=== PATIENT | female | born 1995 | race Caucasian/White ===

== ENCOUNTER → 2016-12-03 | Outpatient (CLI) | payer MEDICAID ==
[~2016-12-03] MED LIST: DOCU100C37 PO; HYDR-3812 PO; IBUP-1773 PO; PREN1TAB86 PO
== END ==
LOC: LAB 15:29
PROVIDERS: ATTEND Family Medicine
DX: R53.83 Other fatigue (principal); R63.5 Abnormal weight gain
CPT/HCPCS: 36415; 84443

== ENCOUNTER → 2017-04-28 | Outpatient (CLI) | payer MEDICAID ==
[~2017-04-28] MED LIST changes: +PHEN-483 PO; +PHEN-640 PO
== END ==
LOC: PREOP 14:08
PROVIDERS: ATTEND Urology
DX: Z01.818 Encounter for other preprocedural examination (principal); R32 Unspecified urinary incontinence; N35.9 Urethral stricture, unspecified

== ENCOUNTER 2017-04-29 07:32 | Day surgery (SDC) | payer MEDICAID ==
[~2017-04-29] VITALS: Ht 165.1 cm; Wt 122.9 kg
[~2017-04-29 07:32] MED LIST changes: -PHEN-483 PO; -PHEN-640 PO
--- OUTSIDE RECORDS SUMMARY | 2017-04-29 07:35 | XMS REPORT ---
Author Author SURYA PAINTER Organization [facility] Address [address] [place] [address] Care Team Providers Care Inbound Sales Manager Name Role Phone PAINTER, SURYA Unavailable PROBLEMS Type Condition ICD9-CM Code HIX69-LB Code Onset Dates Condition Status SNOMED Code Assessment Lichen planus L43.9 Jan, Active 8665564 ALLERGIES Substance Reaction Event Type Date Status N.K.D.A. Unknown Non Drug Allergy Jan, Unknown SOCIAL HISTORY No smoking Hx information available PLAN OF CARE VITAL SIGNS Height 64 in 2016-02-12 Weight 233.6 lbs 2016-02-12 Heart Rate 90 bpm 2016-02-12 Respiratory Rate 18 2016-02-12 BMI 40.09 kg/m2 2016-02-12 Blood pressure systolic 110 mmHg 2016-02-12 Blood pressure diastolic 80 mmHg 2016-02-12 MEDICATIONS Medication Instructions Dosage Frequency Start Date End Date Duration Status Vitamin 27-0.8 MG Active Hydrocortisone 2.5 % Externally Twice a day 1 application to affected area 12h 19 Jan, 2016 Apr, 30 day(s) Active RESULTS No Results PROCEDURES Procedure Date Ordered Related Diagnosis Body Site Office Visit, Est Pt., Level 3 Feb 12, 2016 IMMUNIZATIONS No Known Immunizations
--- OUTSIDE RECORDS SUMMARY | 2017-04-29 07:35 | XMS REPORT ---
Author CALLUM Duran [facility] eClinicalWorks Address Unknown Phone Unavailable Care Team Providers Care Graphic Technician Name Role Phone CALLUM FRANCOIS Unavailable Allergies No Known Allergies Problems Problem Type Condition Code Onset Dates Condition Status Assessment Expectant parent prebirth visual basic developer visit Z76.81 Active Medications No Known Medications Procedures Procedure Coding System Code Date Office Visit, Est Pt., Level 2 CPT-4 60352 Jan 10, 2016 Results No Known Results Summary Purpose eClinicalWorks Submission
--- OUTSIDE RECORDS SUMMARY | 2017-04-29 07:35 | XMS REPORT ---
Author Author MARTIN CHRIS [facility] eClinicalWorks Address Unknown Phone Unavailable Care Team Providers Care Pottery Decoration Designer Name Role Phone MARTIN CHRIS CP Unavailable Allergies No Known Allergies Problems Problem Type Condition Code Onset Dates Condition Status Assessment Encounter for test with result negative Z32.02 Active Medications No Known Medications Procedures Procedure Coding System Code Date URINE TEST CPT-4 52410 May 16, 2015 Results No Known Results Summary Purpose eClinicalWorks Submission
--- OUTSIDE RECORDS SUMMARY | 2017-04-29 07:36 | XMS REPORT | Continuity of Care Document ---
Author Author [facility] Address Unknown Phone Unavailable Allergies Active Description Code Type Severity Reaction Onset Reported/Identified Relationship to Patient Clinical Status Yes NKA Drug N/A N/A Medications Problems Date Dx Coded Attending Type Code Diagnosis Diagnosed By 08/31/2014 KATERINE AGUIRRE DO F 626.4 Irregular periods 08/31/2014 KATERINE AGUIRRE DO F 626.4 Irregular periods 09/23/2014 KATERINE AGUIRRE DO F 789.00 Abdominal pain, unspecified 10/05/2014 KATERINE AGUIRRE DO F 625.9 Female pelvic pain 10/10/2014 Terence Jain Admitting 724.1 Pain in Thoracic Spine 10/10/2014 Terence Jain Final 847.1 Thoracic Sprain 10/10/2014 Terence Jain Final E000.0 Civilian activity done for income or pay. 10/10/2014 Terence Jain Final E849.9 Accidents Occ[address]ring in Unspecified Place 10/10/2014 Terence Jain E927.0 Overexertion from Sudden Strenuous Movement Procedures Code [place] [address] General health panel (comprehensive metabolic, CBC, TSH) 08/31/2014 21626 General health panel (comprehensive metabolic, CBC, TSH) 08/31/2014 91940 Gonadotropin, chorionic (hCG); qualitative 08/31/2014 41155 Gonadotropin, chorionic (hCG); qualitative 08/31/2014 79028 Chlamydia pneumoniae detection by nucleic acid, direct probe. 08/31/2014 24391 Chlamydia pneumoniae detection by nucleic acid, direct probe. 08/31/2014 67934 Neisseria gonorrhoeae detection by immunoassay with direct optical observation 2014 90780 Neisseria gonorrhoeae detection by immunoassay with direct optical observation 2014 1000F Tobacco use assessed (CAD, CAP, COPD, PV)1 (DM)4 09/01/2014 1000F Tobacco use assessed (CAD, CAP, COPD, PV)1 (DM)4 09/01/2014 1036F Current tobacco non-user (CAD, CAP, COPD, PV)1 (DM)4 09/01/2014 1036F Current tobacco non-user (CAD, CAP, COPD, PV)1 (DM)4 09/01/2014 86366 Office visit - new pt, level 2 09/01/2014 76393 Office visit - new pt, level 2 09/01/2014 49046 Urine test by color comparison 09/01/2014 54558 Office/outpatient visit; established patient, level 4 09/23/2014 56294 Urinalysis, automated, with microscopy 09/23/2014 53420 Culture, bacterial; with isolation and presumptive identification of each isolate, urine 2014 90729 Radiologic examination, abdomen; single anteroposterior view 10/04/2014 55565 Office/outpatient visit; established patient, level 3 10/05/2014 Results Encounters ACCT No. Visit Date/Time Discharge Status Pt. Type Provider Facility Loc./Unit Complaint [id number] 10/04/2014 15:57:03 10/04/2014 16:34:31 DIS Outpatient KATERINE AGUIRRE DO [facility] [id number] 09/22/2014 14:52:44 09/22/2014 15:34:24 DIS Outpatient KATERINE AGUIRRE DO [facility] [id number] 08/31/2014 14:44:33 08/31/2014 15:43:51 DIS R KATERINE AGUIRRE DO [facility] [id number] 08/31/2014 14:44:33 08/31/2014 15:43:51 DIS R KATERINE AGUIRRE DO [facility] [id number] 08/30/2014 17:03:00 ACT R [facility] [id number] 10/10/2014 14:51:00 2014 16:24:00 DIS Emergency Susy, [facility] ER Orthopedic
[2017-04-29 07:45] VITALS: BP 125/79
--- NOTE | 2017-04-29 08:29 | Progress Note-Pre Operative ---
Pre-Operative Progress Note H&P Reviewed The H&P was reviewed, patient examined and no changes noted. Date Seen by Provider: Apr 29, 2017 Time Seen by Provider: 08: Date H&P Reviewed: Apr 29, 2017 Time H&P Reviewed: 08:29 Pre-Operative Diagnosis: SEVERE DUS AND INCONTINENCE ALINA MCGOVERN MD Apr 29, 2017 8:29 am
[2017-04-29] MEDS ORDERED: fentaNYL INJECTION 100 MCG/2 ML AMP ONE (09:06)
[2017-04-29] MEDS ORDERED: ONDANSETRON 4 MG/2 ML (SDV) Z0FRAN ONE (09:06)
[2017-04-29] MEDS ORDERED: proPOfol 200 MG/20 ML (DIPRIVAN) VIAL IV ONE (09:06)
[2017-04-29] MEDS ORDERED: MIDAZOLAM 2 MG/2 ML (VERSED) VIAL ONE (09:06)
[2017-04-29] MEDS ORDERED: LIDOCAINE PF 2% 5 ML (XYLOCAINE) VIAL ONE (09:06)
[2017-04-29] MEDS ORDERED: PHEN-483 PO (09:15)
[2017-04-29] MEDS ORDERED: SEVOFLURANE (ULTANE) 15 ML INHAL SOLN ONE (09:38)
--- NOTE | 2017-04-29 09:40 | Progress Note-Post Operative ---
Post-Operative Progess Note Surgeon (s)/Cub Reporter (s) Surgeon ALINA MCGOVERN MD Cub Reporter: N/A Pre-Operative Diagnosis SEVERE DUS AND INCONTINENCE Post-Operative Diagnosis SAME, VAGINAL PROLAPSE Procedure & Operative Findings Date of Procedure 04/29/17 Procedure Performed/Findings CYSTOSCOPY AND UD WITH VAGINAL EXAM Anesthesia Type GENERAL Estimated Blood Loss Estimated blood loss (mL): N/A Specimens/Packing Specimens Removed N/A Packing: N/A ALINA MCGOVERN MD Apr 29, 2017 9:40 am
--- NOTE | 2017-04-29 09:42 | Discharge Inst-Urology ---
Discharge Inst-Urology Discharge Medications New, Converted, or Re-newed RX: RX on Chart Patient Instructions/Follow Up Plan Please make appointment to been seen in office in 3 weeks. Increase oral fluids for 48 hours and then as needed. Diet and Activity as tolerated. If questions or concerns contact your physician Or seek help at emergency department. ALINA MCGOVERN MD Apr 29, 2017 9:42 am
[2017-04-29] MEDS ORDERED: MEPERIDINE (DEMEROL) INJ 50 MG/ML IVP PRN (09:45)
[2017-04-29] MEDS ORDERED: ONDANSETRON 4 MG/2 ML (SDV) Z0FRAN IVP PRN (09:45)
[2017-04-29] MEDS ORDERED: morphine INJ 10 MG/ML 1ML (SYR OR VIAL) IVP PRN (09:45)
[2017-04-29] MEDS ORDERED: LACTATED RINGERS 1,000 ML IV PRN (10:10)
[2017-04-29 10:25] VITALS: BP 125/75
[2017-04-29] MEDS ORDERED: PHEN-640 PO (10:33)
[2017-04-29 10:55] VITALS: BP 125/80
[2017-04-29 11:30] VITALS: BP 125/80
--- NOTE | 2017-04-29 15:28 | OPERATIVE REPORT ---
DATE OF SERVICE: 04/29/2017 PREOPERATIVE DIAGNOSES: Distal urethral stenosis with urinary incontinence. POSTOPERATIVE DIAGNOSES: Distal urethral stenosis with urinary incontinence plus vaginal prolapse. OPERATION PERFORMED: Cystoscopy with urethral dilatation and vaginal examination. SURGEON: Charles Mcgovern MD ANESTHESIA: General. COMPLICATIONS: None. PROCEDURE: Under satisfactory anesthesia, the patient in lithotomy position, genitalia were prepped and draped in the usual sterile fashion. Noted a 2+ to 3+ cystocele and a 1+ rectocele. The severe distal urethral stenosis measured at 16 Israeli was dilated to #30 Israeli easily with minimal residual and minimal bleeding. Cystoscopy was performed with both lenses, was essentially normal. No cystitis, carcinoma in situ or bladder tumor. No stone, no foreign body. Normal ureteric orifices with clear effluxes. Bladder was evacuated and the cystoscope was removed. The patient tolerated the procedure, anesthesia well and was sent to recovery room in stable condition. PLAN: We will see the effect of the dilatation on her incontinence and overactive bladder symptoms. If she continues to have problems, we will work her up for possibility of a surgical procedure to correct the issue. Job ID: [id number] DocumentID: [id number] Dictated Date: 04/29/2017 09:44:41 Trailer Technician Date: 04/29/2017 13:47:19 Dictated By: CHARLES MCGOVERN MD
== END 2017-04-29 11:30 | disposition home or self-care (01) ==
LOC: SDC 07:32
PROVIDERS: ATTEND Urology
DX: N35.9 Urethral stricture, unspecified (principal); R32 Unspecified urinary incontinence; N81.10 Cystocele, unspecified; E66.9 Obesity, unspecified; Z79.899 Other long term (current) drug therapy; Z11.2 Encounter for screening for other bacterial diseases
CPT/HCPCS: 84703; 87081

== ENCOUNTER → 2020-06-14 | Outpatient (CLI) | payer MEDICAID ==
[~2020-06-14] MED LIST changes: +ACHD5005 PO; -HYDR-3812 PO; +PHEN-483 PO; +PHEN-640 PO
--- NOTE | 2020-06-14 17:23 | Diagnostic Imaging Report ---
INDICATION: . TECHNIQUE: Multiple real-time grayscale images were obtained over the gravid uterus. COMPARISON: None FINDINGS: Transabdominal imaging of the gravid uterus demonstrates single live intrauterine with a heart rate of 144 bpm. Placenta is posterior and appears normal. No previa is present. Cervix measures 6.4 cm. There are suboptimal images of the outflow tract lips and nose. The visceral structures are otherwise normal. Gestational age by today's ultrasound is 21 weeks and 1 day. SUBHASH is October 24. IMPRESSION: There is a single live uterine with no abnormalities identified. There are suboptimal images of the nose lips and outflow tract. Biometrical measurements are as follows: Biparietal 4.90 cm, age 20 weeks 6 days. Head circumference 18.82 cm, age 21 weeks 1 days. Abdominal circumference 15.75 cm, age 21 weeks 0 days. Femur length 3.56 cm, age 21 weeks 2 days. Sonographic estimate age: 21 weeks 1 days. Sonographic estimated date of delivery: 10/24/2020. Estimated Weight: 396 gm (+/- 58 gm). LMP percentile: 48%. heart rate: 144 beats per minute. number: 1 of 1. Dictated by: Dictated on workstation # [id number]
== END ==
LOC: RAD 14:54
PROVIDERS: ATTEND Obstetrics & Gynecology
DX: Z34.92 Encounter for supervision of normal pregnancy, unspecified, second trimester (principal); Z3A.21 21 weeks gestation of pregnancy
CPT/HCPCS: 76805

== ENCOUNTER 2020-10-16 06:08 | Outpatient (CLI) | payer MEDICAID ==
[~2020-10-16] VITALS: Ht 165.1 cm; Wt 131.7 kg
[2020-10-16] MEDS ORDERED: PNV1TABL9 PO (11:15)
== END 2020-10-16 11:26 | disposition home or self-care (01) ==
LOC: PREOP 06:08
PROVIDERS: ATTEND Obstetrics & Gynecology
DX: Z01.818 Encounter for other preprocedural examination (principal)

== ENCOUNTER 2020-10-19 06:00 | Inpatient (IN) | payer MEDICAID ==
[~2020-10-19] VITALS: Ht 167.7 cm; Wt 131.8 kg
[2020-10-19] VITALS (11 sets, daily range): BP systolic 100–123; BP diastolic 52–70
[~2020-10-19 06:00] MED LIST changes: +CITRIC ACID/SOB CIT (BICITRA) 30 ML UDC ONE; +FAMOTIDINE 20MG/2ML IV (PEPCID) ONE; +LACTATED RINGERS 1,000 ML IV ONE; +METOCLOPRAMIDE INJ 10 MG/2 ML (REGLAN) ONE; +PNV1TABL9 PO; +ceFAZolin 2 GM IV Premixed 50 ML ONE
[2020-10-19] MEDS ORDERED: CITRIC ACID/SOB CIT (BICITRA) 30 ML UDC PO ONE (06:30)
[2020-10-19] MEDS ORDERED: LACTATED RINGERS 1,000 ML IV SCH (06:30)
[2020-10-19] MEDS ORDERED: METOCLOPRAMIDE INJ 10 MG/2 ML (REGLAN) IV ONE (06:30)
[2020-10-19] MEDS ORDERED: ceFAZolin 2 GM IV Premixed 50 ML IV ONE (06:30)
[2020-10-19] MEDS ORDERED: FAMOTIDINE 20MG/2ML IV (PEPCID) IV ONE (06:30)
[2020-10-19 06:36] LABS: BASOPHILS % (AUTO) 0 % (0-10); EOSINOPHILS # (AUTO) 0.2 10^3/uL (0.0-0.3); EOSINOPHILS % (AUTO) 3 % (0-10); HEMATOCRIT 41 % (35-52); HEMOGLOBIN 14.1 g/dL (11.5-16.0); LYMPHOCYTES # (AUTO) 2.6 10^3/uL (1.0-4.0); LYMPHOCYTES % (AUTO) 35 % (12-44); MEAN CORPUSCULAR HEMOGLOBIN 32 pg (25-34); MEAN CORPUSCULAR HGB CONC 35 g/dL (32-36); MEAN CORPUSCULAR VOLUME 92 fL (80-99); MEAN PLATELET VOLUME 11.6 fL (9.0-12.2); MONOCYTES # (AUTO) 0.5 10^3/uL (0.0-1.0); MONOCYTES % (AUTO) 7 % (0-12); NEUTROPHILS % (AUTO) 54 % (42-75); PLATELET COUNT 173 10^3/uL (130-400); WHITE BLOOD COUNT 7.4 10^3/uL (4.3-11.0)
[2020-10-19] MEDS ORDERED: fentaNYL INJ 100 MCG/2 ML AMP ONE (06:52)
[2020-10-19] MEDS ORDERED: OXYTOCIN PRE-MIX DRIP 1,000 ML IV ONE (06:52)
--- NOTE | 2020-10-19 07:16 | History & Physical-OB ---
OB - Chief Complaint & HPI Date/Time Date of Admission: Date of Admission: October 19, 2020 at 06:00 Date seen by a Provider: October 19, 2020 Time Seen by a Provider: 07:05 Chief Complaint/History OB-Reason for Admission/Chief: Section Hx : 2 Hx Para: 1 Expected Date of Delivery: Oct 25, 2020 Gestational Age in Weeks: 39 Gestational Age in Days: 1 Indication for : desires repeat Admission Nurse Assessment Rev: Yes History of Labs A neg Antibody neg RI RPR NR HBsAg NR HIV NR GC neg GBS neg Allergies and Home Medications Allergies Coded Allergies: No Known Drug Allergies (Unverified , 01/11/16) Home Medications Pnv Cmb#21/Iron/Folic Acid 1 Each Tablet, 1 EACH PO DAILY, (Reported) Patient Home Medication List Home Medication List Reviewed: Yes OB - History Hx of Present Care: Yes Ultrasounds: Normal mid trimester US Obstetrical Complications: None Medical Complications: None Delivery History Hx Blood Disorders: No Patient Past Medical History n/a Social History/Family History 2nd Hand Smoke Exposure: No Immunizations Hepatitis A: Yes Hepatitis B: Yes Tetanus Booster (TDap): Less than 5yrs OB - Admission Exam Physical Exam Vitals: Vital Signs 10/19/20 06:15 Temp 36.0 Pulse 113 Resp 18 B/P (MAP) 116/70 (85) Pulse Ox 97 O2 Delivery Room Air HEENT: NCAT Heart: Rhythm Normal Lungs: Clear Abdomen: Gravid Extremities: Normal Reflexes: Normal Heart Rate: 130's Accelerations: Accelerations Present Decelerations: No Decelerations Short Term Variability: Present Fci Variability: Average (6-25) Contractions on Admission: 6-10 Minutes Apart Intensity: Mild Labs Laboratory Tests Test 10/19/20 06:25 Range/Units White Blood Count 7.4 4.3-11.0 10^3/uL Red Blood Count 4.47 3.80-5.11 10^6/uL Hemoglobin 14.1 11.5-16.0 g/dL Hematocrit 41 35-52 % Mean Corpuscular Volume 92 80-99 fL Mean Corpuscular Hemoglobin 32 25-34 pg Mean Corpuscular Hemoglobin Concent 35 32-36 g/dL Red Cell Distribution Width 11.9 10.0-14.5 % Platelet Count 173 130-400 10^3/uL Mean Platelet Volume 11.6 9.0-12.2 fL Immature Granulocyte % (Auto) 1 % Neutrophils (%) (Auto) 54 42-75 % Lymphocytes (%) (Auto) 35 12-44 % Monocytes (%) (Auto) 7 0-12 % Eosinophils (%) (Auto) 3 0-10 % Basophils (%) (Auto) 0 0-10 % Neutrophils # (Auto) 4.0 1.8-7.8 10^3/uL Lymphocytes # (Auto) 2.6 1.0-4.0 10^3/uL Monocytes # (Auto) 0.5 0.0-1.0 10^3/uL Eosinophils # (Auto) 0.2 0.0-0.3 10^3/uL Basophils # (Auto) 0.0 0.0-0.1 10^3/uL Immature Granulocyte # (Auto) 0.1 0.0-0.1 10^3/uL OB - Assessment/Plan/Diagnosis Assessment Assessment: section Admission Dx 24 yo @ 39 weeks Previous GBS neg Admission Status: Inpatient Order (span 2 midnights) Reason for Inpatient Admission: Repeat at 39 weeks Plan Plan: Section SPENSER WORTHINGTON DO October 19, 2020 07:16
[2020-10-19] MEDS: LACTATED RINGERS 1,000 ML IV SCH ×3 (07:20→15:31)
--- NOTE | 2020-10-19 07:20 | Discharge Inst-Women's Service ---
Discharge Inst-Women's Serv Depart Medication/Instructions New, Converted or Re-Newed RX: RX on Chart Final Diagnosis POD 2 RLTCS Problems Reviewed?: Yes Consults/Follow Up Additional Follow Up: Yes Orders/Referrals Dr. Lyn in 7-10 dats and in 6 weeks Activity Activity: Activity as Tolerated Driving Instructions: You May Drive NO SMOKING: NO SMOKING Nothing Inside Vagina: No Douching, No Appleby, No Tampons Diet Discharge Diet: No Restrictions Symptoms to Report to : Bleeding Excessive, Pain Increased, Fever Over 101 Degrees F, Vaginal Bleeding Increase, Questions/Concerns For Any Problems or Questions: Contact Your Physician Skin/Wound Care Infection Signs and Symptoms: Increased Redness, Foul Odor of Wound, Increased Drainage, Skin Itchy or Has a Rash, Increased Swelling, Temperature Above 101 F Operative Area Clean and Dry: Keep Incision Clean/Dry Stitches/Parish/Dermabond: Dermabond, Care of Stitches Bathing Instructions: SPENSER Tamez DO October 19, 2020 07:20
[2020-10-19] MEDS ORDERED: DCS100C PO (07:21)
[2020-10-19] MEDS ORDERED: ACHD5005 PO (07:21)
[2020-10-19] MEDS ORDERED: IBUP-844 PO (07:21)
[2020-10-19] MEDS ORDERED: ONDANSETRON 4 MG/2 ML (SDV) Z0FRAN IVP PRN (07:30)
[2020-10-19] MEDS: DOCUSATE SODIUM 100 MG (COLACE) CAP PO SCH ×2 (07:30→21:26)
[2020-10-19] MEDS ORDERED: MEASLES,MUMPS,RUBELLA 1 EA INJ SC SCH (07:30)
[2020-10-19] MEDS ORDERED: BISACODYL 10 MG SUPP (DULCOLAX) PR PRN (07:30)
[2020-10-19] MEDS: OXYTOCIN PRE-MIX DRIP 500 ML IV SCH ×2 (07:30→11:50)
[2020-10-19] MEDS ORDERED: TETANUS,DIPTH,PERTUSS P/F (BOOSTRIX) 0.5 ML VIAL IM SCH (07:30)
[2020-10-19] MEDS ORDERED: PHENYLEPHRINE 100 MCG/ML 10 ML (ANESTHESIA) SYR ONE (07:35)
[2020-10-19] MEDS ORDERED: BUPIVACAINE 0.5% 30 ML (SENSORCAINE) VIAL ONE (08:13)
[2020-10-19] MEDS: KETOROLAC 30 MG/ML VIAL IV SCH ×4 (09:32→21:25)
--- NOTE | 2020-10-19 11:27 | OPERATIVE REPORT ---
DATE OF SERVICE: PREOPERATIVE DIAGNOSES: 1. A 24-year-old G2, P1 at 39 weeks and 1-day gestation. 2. Previous section. POSTOPERATIVE DIAGNOSES: 1. A 24-year-old G2, P1 at 39 weeks and 1-day gestation. 2. Previous section. PROCEDURE: Repeat low transverse section. SURGEON: Los Worthington DO ANESTHESIA: Spinal. ESTIMATED BLOOD LOSS: 500 mL. URINE OUTPUT: 150 mL clear at the end of procedure. FLUIDS: 2400 mL lactated Ringer's solution. FINDINGS: A live female weighing 9 pounds 7 ounces, Apgars of 6 and 9. Grossly normal appearing uterus, bilateral fallopian tubes and ovaries. SPECIMEN SENT: Placenta. INDICATIONS FOR PROCEDURE: This 24-year-old female was a patient, who had sought care in my office, it was uncomplicated with the exception of measuring larger than dates on ultrasound and on fundal height measurement. She had been counseled throughout her and we discussed proceeding with repeat as her first delivery was via . Risks of the procedure were discussed with the patient in detail including risk of bleeding, infection, damage to surrounding structures including, but not limited to bowel, bladder, ureter, kidneys, possible need for reoperation, postoperative complications that may occur, recovery timeframe, risk from anesthesia and even . After everything was discussed with the patient in detail, consent was obtained in the preoperative area and the patient was taken to the operating room. OPERATIVE REPORT IN DETAIL: Once in the operating room, spinal analgesia was found to be adequate. She was placed in supine position with a leftward tilt, prepped and draped in normal sterile fashion. A timeout was performed and anesthesia was tested. I then make a Pfannenstiel skin incision through the previously existing scar using knife and carried down to underlying fascia using Bovie cautery. The fascial incision extended laterally using Bovie cautery. Superior aspect of fascial incision was then grasped with Flory clamps, tented up and dissected off the underlying rectus muscles. The inferior aspect of fascial incision was then grasped with Flory clamps, tented up and dissected off the underlying rectus muscles. The rectus muscles were then dissected down the midline using sharp dissection, which exposed the peritoneum, which I entered bluntly and extended using blunt traction. Johnathan ring retractor was placed in the peritoneal incision, which offers excellent lateral sidewall retraction. I identified the lower uterine segment, which was found to be thinned out and make a low transverse incision to the vesicouterine peritoneum and bluntly dissected off the lower uterine segment, creating a bladder flap. I then proceeded with myotomy until membranes were visualized, at which point I extended the uterine incision laterally and superiorly using bandage scissors. Amniotomy was then performed using Allis clamp. Clear fluid was noted. The was found in the vertex presentation. With gentle fundal pressure, the infant's head is elevated up to the incision where it was delivered through the incision. The nares and oropharynx were bulb suctioned. Anterior and posterior shoulders were delivered. The was then brought to the operative field where the cord is duly clamped and cut and infant was handed off to waiting nurses in attendance. Cord blood was collected. Three-vessel cord with intact placenta was delivered spontaneously thereafter. IV Pitocin was initiated to facilitate uterine contraction. Uterine fundus confirmed by manual massage. The uterus was then exteriorized and cleared of all endometrial clots and debris. I then proceeded with closing the uterine incision using 0 Vicryl suture in a running locked fashion. Second layer of imbricating 0 Monocryl was placed. Excellent hemostasis was noted after doing this. I then placed the uterus back within the pelvis and copiously irrigated the pelvis using normal saline. Once again, there was no active bleeding noted from any of my dissection planes. I placed Interceed antiadhesive over my low transverse incision. I removed the Johnathan ring retractor and then proceeded with closing the peritoneum using 3-0 Vicryl suture in running fashion. The rectus muscles were reapproximated using 3-0 Vicryl suture in interrupted fashion. The fascia was reapproximated using 0 Vicryl suture in running fashion. The subcutaneous tissues were reapproximated using 3-0 plain interrupted subcutaneous stitch and skin reapproximated using 4-0 Monocryl running subcuticular. Dermabond was applied to incision and sterile dressing with adhesive white tape. The patient tolerated the procedure well and was taken to recovery area in stable condition. Lap and sponge counts were correct at the end of procedure. Instrument counts correct as well. Two grams of Ancef given preoperatively for infection prophylaxis. Job ID: [id number] DocumentID: [id number] Dictated Date: 10/19/2020 08:31:39 Tank House Operator Helper Date: 10/19/2020 11:26:23 Dictated By: LOS WORTHINGTON DO
[2020-10-19] MEDS: CATHETER FLUSH 10 ML SYR IV SCH ×2 (14:00→21:42)
[2020-10-19] MEDS: HYDROcodone/APAP 5 MG/325 MG (LORTAB) TAB PO PRN (15:21)
[2020-10-19] MEDS ORDERED: SIMETHICONE 80 MG (MYLICON) CHEW ONE (21:22)
[2020-10-19] MEDS ORDERED: SIMETHICONE 80 MG (MYLICON) CHEW PO PRN (21:30)
[2020-10-20 01:05] VITALS: BP 116/58
[2020-10-20] MEDS: HYDROcodone/APAP 5 MG/325 MG (LORTAB) TAB PO PRN ×4 (01:05→23:38)
[2020-10-20 04:53] VITALS: BP 110/57
[2020-10-20] MEDS: IBUPROFEN 600 MG (MOTRIN) TAB PO SCH ×3 (04:53→21:22)
[2020-10-20 06:23] LABS: BASOPHILS % (AUTO) 0 % (0-10); EOSINOPHILS # (AUTO) 0.2 10^3/uL (0.0-0.3); EOSINOPHILS % (AUTO) 2 % (0-10); HEMATOCRIT 39 % (35-52); HEMOGLOBIN 13.3 g/dL (11.5-16.0); LYMPHOCYTES # (AUTO) 2.7 10^3/uL (1.0-4.0); LYMPHOCYTES % (AUTO) 24 % (12-44); MEAN CORPUSCULAR HEMOGLOBIN 32 pg (25-34); MEAN CORPUSCULAR HGB CONC 34 g/dL (32-36); MEAN CORPUSCULAR VOLUME 92 fL (80-99); MEAN PLATELET VOLUME 11.8 fL (9.0-12.2); MONOCYTES # (AUTO) 0.6 10^3/uL (0.0-1.0); MONOCYTES % (AUTO) 5 % (0-12); NEUTROPHILS # (AUTO) 7.5 10^3/uL (1.8-7.8); NEUTROPHILS % (AUTO) 69 % (42-75); PLATELET COUNT 150 10^3/uL (130-400)
--- NOTE | 2020-10-20 06:55 | Postpartum Progress Note ---
Note Note Day # 1 Subjective: Patient is without complaints. Ambulating, voiding. Tolerating a regular diet without nausea or vomiting. Normal lochia. Pain is well controlled with oral pain medications. Objective: Physical Exam: General - Alert and oriented, no apparent distress Abdomen - Soft, appropriately tender to palpation, non-distended, fundus firm at umbilicus Extremities - no edema, negative Sarah's bilaterally Incision- c/d/i Assessment: POD 1 RLTCS Plan: Routine care. Encourage breast feeding. Encourage ambulation. Ferrous sulfate supplementation. Plan for discharge tomorrow Vitals - Labs Vital Signs - I&O Vital Signs Date Time Temp Pulse Resp B/P (MAP) Pulse Ox O2 Delivery O2 Flow Rate FiO2 10/20/20 04:53 36.0 91 18 110/57 (74) 98 Room Air 10/20/20 01:05 36.4 88 16 116/58 (77) 97 Room Air 10/19/20 21:25 36.2 82 16 114/59 (77) 97 Room Air 10/19/20 16:27 37.0 78 16 123/61 (81) 97 Room Air 10/19/20 12:30 36.3 79 16 117/70 (86) 99 Room Air 10/19/20 11:05 Room Air 10/19/20 10:00 36.3 66 16 115/58 (77) 98 Room Air 10/19/20 09:25 Room Air 10/19/20 09:15 Room Air 10/19/20 09:15 36.3 22 102/66 (78) 96 Room Air 10/19/20 09:05 16 100/63 (75) 96 Room Air 10/19/20 08:55 Room Air 10/19/20 08:55 18 100/65 (77) 95 Room Air 10/19/20 08:45 20 104/60 (75) 96 Room Air 10/19/20 08:40 Room Air 10/19/20 08:35 15 108/52 (70) 97 Room Air 10/19/20 08:28 Room Air 10/19/20 08:26 36.6 16 108/63 (78) 97 Room Air l I & O 10/20/20 07:00 Intake Total 2250 ml Output Total 2225 ml Balance 25 ml Labs Laboratory Tests 10/20/20 06:02: White Blood Count 11.0, Red Blood Count 4.20, Hemoglobin 13.3, Hematocrit 39, Mean Corpuscular Volume 92, Mean Corpuscular Hemoglobin 32, Mean Corpuscular Hemoglobin Concent 34, Red Cell Distribution Width 12.2, Platelet Count 150, Mean Platelet Volume 11.8, Immature Granulocyte % (Auto) 0, Neutrophils (%) (Auto) 69, Lymphocytes (%) (Auto) 24, Monocytes (%) (Auto) 5, Eosinophils (%) (Auto) 2, Basophils (%) (Auto) 0, Neutrophils # (Auto) 7.5, Lymphocytes # (Auto) 2.7, Monocytes # (Auto) 0.6, Eosinophils # (Auto) 0.2, Basophils # (Auto) 0.0, Immature Granulocyte # (Auto) 0.0 SPENSER WORTHINGTON DO October 20, 2020 06:55
[2020-10-20] MEDS: DOCUSATE SODIUM 100 MG (COLACE) CAP PO SCH ×2 (07:56→21:22)
[2020-10-20 07:57] VITALS: BP 109/57
[2020-10-20 11:26] VITALS: BP 123/70
--- NOTE | 2020-10-20 14:22 | Anesthesia-Regional Post-Op ---
Regional Patient Condition Mental Status: Alert, Oriented x3 Circulation: Same as Pre-Op Headache: Absent Sensation: Full Recovery Motor Block: Absent Post Op Complications Complications None Follow Up Care/Instructions Patient Instructions None needed. Anesthesia/Patient Condition Patient is doing well, no complaints, stable vital signs, no apparent adverse anesthesia problems. No complications reported per nursing. COOKIE KAUFMAN CRNA October 20, 2020 14:22
[2020-10-20 16:39] VITALS: BP 91/52
[2020-10-20 21:18] VITALS: BP 123/71
[2020-10-21] MEDS: IBUPROFEN 600 MG (MOTRIN) TAB PO SCH ×2 (03:07→09:22)
[2020-10-21 03:08] VITALS: BP 106/63
--- NOTE | 2020-10-21 08:30 | Postpartum Progress Note ---
Note Note Day # 2 Subjective: Patient is without complaints. Ambulating, voiding. Tolerating a regular diet without nausea or vomiting. Normal lochia. Pain is well controlled with oral pain medications. Objective: Physical Exam: General - Alert and oriented, no apparent distress Abdomen - Soft, appropriately tender to palpation, non-distended, fundus firm at umbilicus Extremities - no edema, negative Sarah's bilaterally Incision- c/d/i Assessment: POD 2 RLTCS Plan: Routine care. Encourage breast feeding. Encourage ambulation. Ferrous sulfate supplementation. Plan for discharge today Vitals - Labs Vital Signs - I&O Vital Signs Date Time Temp Pulse Resp B/P (MAP) Pulse Ox O2 Delivery O2 Flow Rate FiO2 10/21/20 03:08 36.2 83 18 106/63 (77) 94 10/20/20 21:18 36.1 84 18 123/71 (88) 98 Room Air 10/20/20 16:39 36.3 79 18 91/52 (65) 97 Room Air 10/20/20 11:26 36.0 87 18 123/70 (87) 97 Room Air Labs Microbiology 10/19/20 MRSA Screen - Final, Complete MRSA not isolated SPENSER WORTHINGTON DO October 21, 2020 08:30
[2020-10-21 09:19] VITALS: BP 135/64
[2020-10-21] MEDS: DOCUSATE SODIUM 100 MG (COLACE) CAP PO SCH (09:22)
[2020-10-21] MEDS: HYDROcodone/APAP 5 MG/325 MG (LORTAB) TAB PO PRN (11:24)
== END 2020-10-21 12:00 | disposition home or self-care (01) | DRG 788 ==
LOC: LDRP 06:00
PROVIDERS: ADMIT Obstetrics & Gynecology; ATTEND Obstetrics & Gynecology
PROC: 10D00Z1 Extraction of Products of Conception, Low, Open Approach (ICD-10-PCS; principal; 2020-10-19 07:20)
DX: O34.211 Maternal care for low transverse scar from previous cesarean delivery (principal); Z3A.39 39 weeks gestation of pregnancy; Z37.0 Single live birth
CPT/HCPCS: 36415; 83033; 85025; 86850; 86900; 86901; 87081; 94664

== ENCOUNTER 2022-09-06 03:05 | Emergency (ER) | payer MEDICAID ==
[~2022-09-06] VITALS: Ht 167.7 cm; Wt 140.6 kg
[~2022-09-06 03:05] MED LIST changes: -CITRIC ACID/SOB CIT (BICITRA) 30 ML UDC ONE; +DOCU-239 PO; -FAMOTIDINE 20MG/2ML IV (PEPCID) ONE; +IBUP-844 PO; -LACTATED RINGERS 1,000 ML IV ONE; -METOCLOPRAMIDE INJ 10 MG/2 ML (REGLAN) ONE; -ceFAZolin 2 GM IV Premixed 50 ML ONE
[2022-09-06 03:11] VITALS: BP 137/84
[2022-09-06] MEDS ORDERED: [UNRECOGNIZED DRUG - OTHER] (03:15)
[2022-09-06] MEDS ORDERED: BETA15OI2 (03:15)
--- NOTE | 2022-09-06 03:22 | ED EENT ---
History of Present Illness General Chief Complaint: Oral/Throat Problems Stated Complaint: RT SIDE TONSIL SWOLLEN Nursing Triage Note: right sided sore throat x2 days. History of Present Illness Date Seen by Provider: Sep 06, 2022 Time Seen by Provider: 03:22 Initial Comments 26-year-old female presents with sore throat for 2 days.. She reports that right side now swollen and right side tonsil swollen. This is happened 3-4 times since March and is acute wanted know what is causing it. Patient reports she been seen at urgent care and had a test that was negative. Allergies and Home Medications Allergies Coded Allergies: No Known Drug Allergies (Unverified , 01/11/16) Patient Home Medication List Home Medication List Reviewed: Yes Betamethasone Valerate (Betamethasone Valerate) 0.1 % Oint...g., (Reported) Entered as Reported by: DARIEN PARMAR on 09/06/22314 Last Action: New Order [Mupir/Betameth/Micon] , (Reported) Entered as Reported by: DARIEN PARMAR on 09/06/22314 Last Action: New Order Discontinued Medications Docusate Sodium (Dok) 100 Mg Capsule, 100 MG PO BID PRN for CONSTIPATION-1ST LINE Discontinued Reason: No Longer Taking Prescribed by: SPENSER WORTHINGTON on 10/19/20720 Last Action: Discontinued Hydrocodone Bit/Acetaminophen (HYDROcodone/APAP 5 MG/325 MG TAB) 1 Tab Tab, 1-2 EA PO Q6H PRN for PAIN-MODERATE (5-7) Discontinued Reason: No Longer Taking Prescribed by: SPENSER WORTHINGTON on 10/19/20720 Last Action: Discontinued Ibuprofen (Ibu) 600 Mg Tablet, 600 MG PO Q6HR Discontinued Reason: No Longer Taking Prescribed by: SPENSER WORTHINGTON on 10/19/20720 Last Action: Discontinued Pnv Cmb#21/Iron/Folic Acid ( Complete Caplet) 1 Each Tablet, 1 EACH PO DAILY, (Reported) Discontinued Reason: No Longer Taking Entered as Reported by: MELISSA HATHAWAY on 10/16/201114 Last Action: Discontinued Review of Systems Review of Systems Constitutional: No chills, No fever Eyes: No Symptoms Reported Ears: No Symptoms Reported Nose: no symptoms reported Mouth: see HPI Throat: see HPI Respiratory: no symptoms reported Cardiovascular: no symptoms reported Musculoskeletal: no symptoms reported Skin: see HPI Neurological: See HPI Hematologic/Lymphatic: See HPI Past Hghlpbk-Zasxxo-Jgonlh Hx Patient Social History Tobacco Use?: No Substance use?: No Alcohol Use?: No Pt feels they are or have been: No Immunizations Up To Date Tetanus Booster (TDap): Less than 5yrs PED Vaccines UTD: Yes First/Initial COVID19 Vaccinat: na Seasonal Allergies Seasonal Allergies: No Past Medical History Surgery/Hospitalization HX: x2 Surgeries: Yes (WISDOM TEETH, LAPAROSCOPY, PREVIOUS ) Abdominal, Section Respiratory: No Currently Using CPAP: No Currently Using BIPAP: No Cardiac: No Neurological: No Last Menstrual Period: Sep 06, 2022 Reproductive Disorders: No Female Reproductive Disorders: Denies Sexually Transmitted Disease: No HIV/AIDS: No Genitourinary: No Gastrointestinal: No Musculoskeletal: No Endocrine: No HEENT: No Cancer: No Psychosocial: No Integumentary: Yes Eczema Blood Disorders: No Family Medical History Patient reports no known family medical history. Physical Exam Vital Signs Vital Signs - First Documented 09/06/22 03:11 Temp 36.5 Pulse 102 Resp 18 B/P (MAP) 137/84 (101) Pulse Ox 98 O2 Delivery Room Air Height, Weight, BMI Height: 5'5.00" Weight: 271lbs. 0.0oz. 122.461168gh; 49.00 BMI Method: General Appearance: WD/WN, no apparent distress Nose: normal inspection Mouth/Throat: No mandibular swelling; tonsillar swelling (2+), other (Pharyngeal and tonsillar erythema but no obvious exudate) Neck: lymphadenopathy (R) Cardiovascular: normal peripheral pulses, regular rate, rhythm Respiratory: lungs clear, normal breath sounds Gastrointestinal: non tender, soft Neurologic/Psychiatric: alert, normal mood/affect, oriented x 3 Skin: normal color, warm/dry Progress/Results/Core Measures Results/Orders Vital Signs/I&O 09/06/22 03:11 Temp 36.5 Pulse 102 Resp 18 B/P (MAP) 137/84 (101) Pulse Ox 98 O2 Delivery Room Air Blood Pressure Mean: 101 Progress Progress Note : Progress Note Patient with right-sided lymphadenopathy, pain and swollen tonsil. I will empirically treat her for strep. Recommend that since this has been recurrent she may have a underlying strep infection versus other etiology. That we will treat first then she will need to follow-up with her ENT if it becomes recurrent to see if they need to remove her tonsil for further work-up. Patient is stable discharged home Departure Impression Primary Impression: Pharyngitis Qualified Codes: J02.9 - Acute pharyngitis, unspecified Disposition: HOME, SELF-CARE Condition: Stable Departure-Patient Inst. Referrals: NO,LOCAL PHYSICIAN (PCP/Family) Primary Care Physician Patient Instructions: Strep Throat ED Add. Discharge Instructions: Please follow-up with ENT specialist if after treatment, you continue to have recurrent right-sided tonsillar swelling and lymphadenopathy. All discharge instructions reviewed with patient and/or family. Voiced understanding. Scripts Amoxicillin (Amoxicillin) 500 Mg Capsule 500 MG PO TID, #30 CAP 0 Refills Prov: RONNY KUMARI DO 09/06/22 RONNY KUMARI DO Sep 06, 2022 03:22
[2022-09-06] MEDS ORDERED: AMOX500C2 PO (03:34)
== END 2022-09-06 03:37 | disposition home or self-care (01) ==
LOC: EDUNIT# 03:05 → ER 03:09
DX: J02.9 Acute pharyngitis, unspecified (principal); R59.1 Generalized enlarged lymph nodes; Z28.310 Unvaccinated for COVID-19
CPT/HCPCS: 99283